=== PATIENT | male | born 1995 | race African-American/Black ===

== ENCOUNTER 2019-02-01 10:31 | Emergency (ER) | payer SELFPAY ==
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
[2019-02-01] MEDS ORDERED: Acetaminophen 500 MG TAB ONE (13:21)
[2019-02-01] MEDS ORDERED: Ibuprofen 800 MG TAB ONE (13:21)
[2019-02-01] MEDS ORDERED: Bupivacaine 0.25% 10 ML VIAL ONE (13:45)
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
== END 2019-02-01 14:30 | disposition home or self-care (01) ==
LOC: ERS 10:31
DX: S62.326A Displaced fracture of shaft of fifth metacarpal bone, right hand, initial encounter for closed fracture (principal); F17.210 Nicotine dependence, cigarettes, uncomplicated; V49.9XXA Car occupant (driver) (passenger) injured in unspecified traffic accident, initial encounter
CPT/HCPCS: 26605; S0020

== ENCOUNTER 2022-05-24 06:11 | Emergency (ER) | payer SELFPAY | END 2022-05-24 06:30 | disposition home or self-care (01) | LOC: ERS 06:11 | DX: B34.9 Viral infection, unspecified (principal); Z20.822 Contact with and (suspected) exposure to COVID-19; F17.210 Nicotine dependence, cigarettes, uncomplicated | CPT/HCPCS: 87804; 99284; U0003; U0005 ==